=== PATIENT | male | born 1955 | race Caucasian/White ===

== ENCOUNTER 2019-09-01 12:00 | Outpatient (CLI) | payer BC, SELFPAY | END 2019-09-01 12:01 | disposition home or self-care (01) | LOC: SLEEP 09-02 15:42 | PROVIDERS: Family Provider Internal Medicine; Visit Provider Internal Medicine | DX: G47.33 Obstructive sleep apnea (adult) (pediatric) (principal) | CPT/HCPCS: G0399 ==

== ENCOUNTER → 2021-01-07 08:06 | Outpatient (BNVA) | payer BC, SELFPAY | PROVIDERS: Family Provider Internal Medicine; PCP Internal Medicine; Visit Provider Urology | DX: R31.9 Hematuria, unspecified (principal); R31.0 Gross hematuria; N52.9 Male erectile dysfunction, unspecified | CPT/HCPCS: 81003 ==

== ENCOUNTER 2021-01-07 09:39 | Outpatient (CLI) | payer BC, SELFPAY | END 2021-01-07 09:40 | disposition home or self-care (01) | LOC: LAB 03-08 12:12 | PROVIDERS: PCP Internal Medicine; Visit Provider Urology | DX: R31.9 Hematuria, unspecified (principal) | CPT/HCPCS: 87086; 88112 ==

== ENCOUNTER 2021-02-08 11:13 | Outpatient (CLI) | payer BC, SELFPAY ==
--- NOTE | 2021-02-08 11:17 | CT_ITS ---
WS: [id number] CT ABDOMEN AND PELVIS WITH AND WITHOUT CONTRAST HISTORY: GROSS HEMATURIA TECHNIQUE: Unenhanced 5 mm axial imaging first performed through the abdomen. Post contrast imaging t hrough the abdomen and pelvis. Oral contrast has not been provided. Sagittal and coronal reformats a re submitted. All CT scans at [facility] use at least one of these dose optimization tech niques: automated exposure control; mA and/or kV adjustment per patient size (includes targeted exams where dose is matched to clinical indication); or iterative reconstruction. CONTRAST: Omnipaque 350; 95 mL IV. DLP: 2459.15 mGycm COMPARISON: None available. Quality of this examination is limited by body habitus. Benign granuloma RIGHT lung base. Otherwise lung bases are clear. Very mild enlargement of the LEFT h eart chambers. LEFT anterior descending coronary artery calcifications. Small hiatal hernia. RIGHT kidney: Cortical hypodensity measures 12 mm in the mid kidney. No enhancement. No renal obstruc tion and no filling defect in the ureter. No solid mass. LEFT kidney: Normal size kidney with no renal calcification or mass. No enhancing masses. No filling defects within the ureter. Urinary bladder is well distended. No intraluminal filling defect is identified. Mild hepatomegaly and hepatic steatosis. Normal size spleen. Gallbladder is negative. Pancreas and ad renal glands are normal. No GI tract obstruction. Appendix is normal. Ventral abdominal wall hernia c ontains fat only. No ascites or adenopathy. Prior fusion at L3-4. CT/CT abdomen pelvis wo/w [id number] IMPRESSION: Quality of this examination is limited by body habitus. 1. No renal calcification or obstruction. 2. No solid renal mass. 3. Cyst in the mid RIGHT kidney measures 12 mm. 4. No filling defect in the urinary bladder.
[2021-02-08] MEDS: iohexol 350 mg/mL 100 mL Btl IV (11:55)
== END 2021-02-08 11:14 | disposition home or self-care (01) ==
PROVIDERS: PCP Internal Medicine; Visit Provider Urology
DX: R31.0 Gross hematuria (principal)
CPT/HCPCS: 74178; 81003; 87086; 88112; Q9967

== ENCOUNTER 2021-06-08 13:37 | Outpatient (CLI) | payer BC, SELFPAY ==
--- NOTE | 2021-06-08 13:58 | XR_ITS ---
WS: [id number] SHOULDER LEFT TECHNIQUE: 3 views of the left shoulder CLINICAL INFORMATION: PAIN IN LEFT SHOULDER COMPARISON: None. FINDINGS: Mild degenerative arthritis AC joint. Preservation subacromial space. Minimal downsloping acromion. 1 3 mm intra-articular loose body. Mild narrowing of the glenohumeral joint. No acute fractures. Visual ized left lung is well aerated. XR/XR shoulder LT min 2V* [id number] IMPRESSION: 1. Mild degenerative arthritis left shoulder. 2. 13 mm calcified intra-articular loose body. 3. No acute fractures.
== END 2021-06-08 13:38 | disposition home or self-care (01) ==
PROVIDERS: PCP Internal Medicine; Visit Provider Internal Medicine
DX: M19.012 Primary osteoarthritis, left shoulder (principal)
CPT/HCPCS: 73030

== ENCOUNTER 2023-09-17 13:55 | Outpatient (RCR) | payer MEDICARE, SELFPAY | END 2023-10-11 23:59 | disposition home or self-care (01) | LOC: SPT 13:55 | PROVIDERS: PCP Internal Medicine; Visit Provider Internal Medicine | DX: M51.17 Intervertebral disc disorders with radiculopathy, lumbosacral region (principal) | CPT/HCPCS: 97110; 97140; 97162; G0283 ==